=== PATIENT | female | born 1975 | race American Indian/Alaskan Native ===

== ENCOUNTER 2017-04-07 08:30 | Emergency (ER) | payer MEDICAID ==
[2017-04-07 08:40] VITALS: BP 112/73; PULSE 75; RESP 18; TEMP 98.3; O2SAT 100
--- NOTE | 2017-04-07 08:52 | C.PDOC ---
History Of Present Illness 41 yo female w/o significant PMHx come in for evaluation of Right wrist pain intermittent for past few months gradually worsen for past few days and associated intermittent tingling and numbness sensation to Right fingers. 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 Otherwise, pt denies fever, chills, known direct trauma or injury, denies deformity, weakness, vascular deficits or skin changes to Right hand. Ambulate to Ed for evaluation, not in any apparent distress. Time Seen by Provider: 04/07/17 08:51 Chief Complaint (Nursing): Finger,Hand,&Wrist History Per: Patient Onset/Duration Of Symptoms: Intermittent Episodes, Gradual Past Medical History Reviewed: Historical Data, Nursing Documentation, Vital Signs Vital Signs: Last Vital Signs Temp 98.3 F 04/07/17 08:35 Pulse 75 04/07/17 08:35 Resp 18 04/07/17 08:35 BP 112/73 04/07/17 08:35 Pulse Ox 100 04/07/17 08:52 - Medical History PMH: No Chronic Diseases Surgical History: No Surg Hx Family History: States: No Known Family Hx - Social History Hx Tobacco Use: Yes Hx Alcohol Use: No Hx Substance Use: No - Immunization History Hx Tetanus Toxoid Vaccination: No Hx Influenza Vaccination: No Hx Pneumococcal Vaccination: No Review Of Systems Except As Marked, All Systems Reviewed And Found Negative. Constitutional: Negative for: Fever, Chills ENT: Negative for: Throat Pain Musculoskeletal: Positive for: Hand Pain Skin: Negative for: Rash, Lesions Neurological: Positive for: Numbness. Negative for: Weakness Physical Exam - Physical Exam Appears: Well, Non-toxic, No Acute Distress Skin: Normal Color, Warm, No Rash, No Ecchymosis Extremity: Normal ROM (Right wrist and hand without difficulty.), Tenderness ( mild tenderness volar aspect Right wrist. Phalen and Tunnel test (-). No skin changes, no neurovascular deficits distally.), Capillary Refill (less than 2sec to Right hand), No Deformity (Right wrist and hand), No Swelling Neurological/Psych: Oriented x3, Normal Speech, Normal Motor, Normal Sensation, Normal Reflexes ED Course And Treatment O2 Sat by Pulse Oximetry: 100 Pulse Ox Interpretation: Normal Progress Note: On re-evaluation, pt is afebrile, hemodynamicaly stable. non- toxic. Right wrist: exam c/w arthralgia with mild paresthesia. No deformity, FAROM, no neurovascular deficits, no skin changes. No hx of trauma, hx offered - pt refused. Volar splint applied, anti-inflammatory given. Pt advised and ref. to F/u with PMD, Ortho in 2-3 days for re-eval. return if any new changes. Orthopedic Time Performed: 09:00 Time Out: Side verified, Site verified, Patient ID confirmed Procedure: Splint Type: Volar Location: Right, Wrist Consent obtained: Verbal Performed by: Mid-level Provider Diagnosis: Sprain, Other (paresthesia) Disposition Counseled Patient/Family Regarding: Diagnosis, Need For Followup, Rx Given - Disposition Referrals: Trenton Lara MD [Staff Provider] - Disposition: HOME/ ROUTINE Disposition Time: 09:02 Condition: STABLE Additional Instructions: LIght duty to Right wrist Splint for 2-3 weeks take medication as prescribed Follow up with PMD in 2-3 days for re-evaluation. Return to Ed if any worsening or new changes. Prescriptions: Prednisone [Deltasone] 20 mg PO DAILY #3 tablet traMADol [Ultram] 50 mg PO BID #7 tab Instructions: Paresthesia (ED) Forms: [facility] (Armenian), Work Excuse - Clinical Impression Clinical Impression: Hand paresthesia
== END 2017-04-07 09:25 | disposition home or self-care (01) ==
LOC: C.ER 08:30
DX: R20.9 Unspecified disturbances of skin sensation (principal)

== ENCOUNTER 2017-06-22 10:27 | Emergency (ER) | payer MEDICAID ==
[2017-06-22 10:45] VITALS: BP 116/69; PULSE 68; RESP 20; TEMP 98.2; O2SAT 100
[2017-06-22] MEDS ORDERED: Naproxen 550 mg Tab PO STA (11:09)
--- NOTE | 2017-06-22 11:11 | C.PDOC ---
History Of Present Illness 41 y/o female presents to ED with complaints of right hand numbness for 2 weeks. Patient was seen previously several months ago for same symptoms and reports she did not follow up with specialist. 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 Time Seen by Provider: 06/22/17 11:06 Chief Complaint (Nursing): Upper Extremity Problem/Injury History Per: Patient History/Exam Limitations: no limitations Onset/Duration Of Symptoms: Days Current Symptoms Are (Timing): Still Present Past Medical History Reviewed: Historical Data, Nursing Documentation, Vital Signs Vital Signs: Last Vital Signs Temp 98.2 F 06/22/17 10:44 Pulse 68 06/22/17 10:44 Resp 20 06/22/17 10:44 BP 116/69 06/22/17 10:44 Pulse Ox 100 06/22/17 11:27 - Medical History PMH: No Chronic Diseases Surgical History: No Surg Hx Family History: States: No Known Family Hx - Social History Hx Tobacco Use: Yes Hx Alcohol Use: No Hx Substance Use: No - Immunization History Hx Tetanus Toxoid Vaccination: No Hx Influenza Vaccination: Yes (03/2016) Hx Pneumococcal Vaccination: No Review Of Systems Except As Marked, All Systems Reviewed And Found Negative. Neurological: Positive for: Numbness (right hand) Physical Exam - Physical Exam Appears: Non-toxic, No Acute Distress Skin: Normal Color, Warm, Dry, No Rash Head: Atraumatic, Normacephalic Eye(s): bilateral: Normal Inspection Oral Mucosa: Moist Neck: Supple Extremity: Normal ROM, No Tenderness, Capillary Refill (<2 seconds), No Swelling Pulses: Left Radial: Normal, Right Radial: Normal Neurological/Psych: Oriented x3, Normal Motor, Normal Sensation ED Course And Treatment O2 Sat by Pulse Oximetry: 100 (RA) Pulse Ox Interpretation: Normal Disposition - Disposition Referrals: Mayda Montiel MD [Staff Provider] - Disposition: HOME/ ROUTINE Disposition Time: 11:11 Condition: STABLE Additional Instructions: follow up with your doctor, specialist. return to er with worsening symptoms or concerns. Instructions: Paresthesia (ED), Arthralgia (ED) Forms: [facility] (Kiswahili) - Clinical Impression Clinical Impression: Hand numbness - Scribe Statement The provider has reviewed the documentation as recorded by the Scribdoris Kim All medical record entries made by the Scribe were at my direction and personally dictated by me. I have reviewed the chart and agree that the record accurately reflects my personal performance of the history, physical exam, medical decision making, and the department course for this patient. I have also personally directed, reviewed, and agree with the discharge instructions and disposition.
[2017-06-22] MEDS ORDERED: Naproxen 550 mg Tab PO ONE (11:16)
== END 2017-06-22 11:31 | disposition home or self-care (01) ==
LOC: C.ER 10:27
DX: R20.2 Paresthesia of skin (principal)

== ENCOUNTER 2017-12-04 12:12 | Emergency (ER) | payer MEDICAID ==
[2017-12-04 12:15] VITALS: BP 122/69; PULSE 80; TEMP 98.4; O2SAT 100
--- NOTE | 2017-12-04 12:27 | C.PDOC ---
History Of Present Illness 41 year old female present to the ED with a sore throat. Patient also states that she has nasal congestion. Time Seen by Provider: 12/04/17 12:23 Chief Complaint (Nursing): ENT Problem History Per: Patient History/Exam Limitations: None Onset/Duration Of Symptoms: Days Current Symptoms Are (Timing): Still Present Past Medical History Reviewed: Historical Data, Nursing Documentation, Vital Signs Vital Signs: Last Vital Signs Temp 98.4 F 12/04/17 12:13 Pulse 80 12/04/17 12:13 Resp 17 12/04/17 12:46 BP 122/69 12/04/17 12:13 Pulse Ox 100 12/04/17 12:27 - Medical History PMH: No Chronic Diseases Family History: States: Unknown Family Hx - Social History Hx Tobacco Use: Yes Hx Alcohol Use: No Hx Substance Use: No - Immunization History Hx Tetanus Toxoid Vaccination: No Hx Influenza Vaccination: Yes (03/2016) Hx Pneumococcal Vaccination: No Review Of Systems Except As Marked, All Systems Reviewed And Found Negative. ENT: Positive for: Throat Pain, Other (nasal congestion) Physical Exam - Physical Exam Appears: Well, Non-toxic, No Acute Distress Nose: Other (nasal congestion) Throat: Erythema Neck: Normal, Supple Lymphatic: Other (No lymphadenopathy) Neurological/Psych: Oriented x3, Normal Speech ED Course And Treatment O2 Sat by Pulse Oximetry: 100 (RA) Pulse Ox Interpretation: Normal Medical Decision Making Medical Decision Making: sore throat not infected + PND, + nasal congestion c/w seasonal allergies. Disposition Doctor Will See Patient In The: Office Counseled Patient/Family Regarding: Studies Performed, Diagnosis - Disposition Referrals: Trenton Lara MD [Staff Provider] - Disposition: HOME/ ROUTINE Disposition Time: 12:27 Condition: GOOD Additional Instructions: motrin 400-600 mg every 6 hours as needed for throat pain daily Seasonal Allergy meds: Claritin, Flonase, Zyrtec, as needed for symptomatic relief. Instructions: Seasonal Allergies in Adults, Sore Throat, Adult (DC) Forms: [facility] [facility] (Chilean) - Clinical Impression Clinical Impression: Sore throat - Scribe Statement The provider has reviewed the documentation as recorded by the Scribe (Blanca Way) Provider Attestation: All medical record entries made by the Scribe were at my direction and personally dictated by me. I have reviewed the chart and agree that the record accurately reflects my personal performance of the history, physical exam, medical decision making, and the department course for this patient. I have also personally directed, reviewed, and agree with the discharge instructions and disposition.
[2017-12-04 12:47] VITALS: RESP 17
== END 2017-12-04 12:46 | disposition home or self-care (01) ==
LOC: C.ER 12:12
DX: J02.9 Acute pharyngitis, unspecified (principal)

== ENCOUNTER 2018-05-10 08:46 | Observation (INO) | payer MEDICAID ==
[2018-05-10] MEDS ORDERED: Sodium Chloride 0.9% 1,000 ML IV ONE (09:48)
--- NOTE | 2018-05-10 09:52 | C.PDOC ---
History Of Present Illness 42 year old female with PMHx of hepatitis, smoker presents to the ED for evaluation of reproducible right-sided chest pain which began last night. Patient describes her pain as constant, localized over Right anterior chest wall, and states it is worse with movement. She denies headache, dizziness, shortness of breath, wheezing, palpitations, diaphoresis, abdominal pain, nausea and vomiting, back pain. Ambulate to Ed for evaluation, not in any apparent distress. Time Seen by Provider: 05/10/18 09:02 Chief Complaint (Nursing): Chest Pain History Per: Patient History/Exam Limitations: no limitations Onset/Duration Of Symptoms: Hrs Current Symptoms Are (Timing): Still Present Quality: "Pain" Exacerbating Factors: Movement Additional History Per: Patient Past Medical History Reviewed: Historical Data, Nursing Documentation, Vital Signs Vital Signs: Last Vital Signs Temp Pulse 72 05/10/18 09:10 Resp BP Pulse Ox - Medical History PMH: No Chronic Diseases Surgical History: No Surg Hx Family History: States: Unknown Family Hx - Social History Hx Tobacco Use: Yes Hx Alcohol Use: No Hx Substance Use: No - Immunization History Hx Tetanus Toxoid Vaccination: No Hx Influenza Vaccination: No Hx Pneumococcal Vaccination: No Review Of Systems Cardiovascular: Positive for: Chest Pain Gastrointestinal: Negative for: Nausea, Vomiting, Abdominal Pain Neurological: Negative for: Headache, Dizziness Physical Exam - Physical Exam Appears: Well, Non-toxic, No Acute Distress Skin: Normal Color, Warm, Dry, No Rash Head: Normacephalic Eye(s): bilateral: PERRL Nose: No Flaring, No Discharge Oral Mucosa: Moist Throat: No Drooling Neck: Normal ROM, Trachea Midline, Supple Chest: Symmetrical, No Deformity, Tenderness (Right anterior chest wall tenderne ss overl 6-8 intercostal spaces.), No Ecchymosis, No Subcutaneous Emphysema Cardiovascular: Rhythm Regular, No Murmur, No JVD, Other ((-) carotid bruits B/L) Respiratory: No Decreased Breath Sounds, No Accessory Muscle Use, No Rales, No Rhonchi, No Stridor, No Wheezing Gastrointestinal/Abdominal: Soft, No Tenderness, No Distention, No Guarding Back: No CVA Tenderness Extremity: Normal ROM, No Pedal Edema, No Deformity, No Swelling Neurological/Psych: Oriented x3, Normal Speech ED Course And Treatment - Laboratory Results Result Diagrams: 05/10/18 10:30 05/10/18 10:30 Lab Interpretation: Abnormal Urine POC: Negative ECG: Interpreted By Me, Viewed By Me ECG Rhythm: Sinus Rhythm ECG Interpretation: Normal Interpretation Of ECG: SR@69/min, NAD, no acute T wave or ST-T changes O2 Sat by Pulse Oximetry: 100 (on RA ) Pulse Ox Interpretation: Normal - Radiology CXR: Interpreted by Me, Viewed By Me, Read By Radiologist CXR Interpretation: Yes: No Acute Disease - CT Scan/US Transvaginal US Other Rad Studies (CT/US): Radiology Report Reviewed CT/US Interpretation: Appeals Examiner : Becky Salas MD. Approver2 : Report Date : 05/10/2018 14:39:10. My Comment : . Date of service: 05/10/2018. HISTORY: anemia, heavy vag bleeding. COMPARISON: None available. TECHNIQUE: Real-time transabdominal pelvic ultrasound was performed. In addition a transvaginal pelvic ultrasound was necessary to better depict pelvic anatomy. FINDINGS: UTERUS: Measures 11.5 x 6.4 x 7.3 cm. Anteverted. Heterogeneous uterine echotexture. Numerous probable uterine fibroids including 0.7 cm lower uterine segment, 1.0 cm fundus, and 3.4 cm fundus. Question thickening of the myometrium with shadowing which may be seen in the setting of adenomyosis. ENDOMETRIUM: Measures 1.7 cm in diameter. CERVIX: Nabothian cysts. RIGHT OVARY: Measures 2.7 x 1.5 x 2.1 cm. Blood flow is demonstrated. LEFT OVARY: Measures 4.2 x 1.7 x 3.5 cm. Blood flow is demonstrated. FREE FLUID: No significant free fluid noted. OTHER FINDINGS: None. IMPRESSION: Heterogeneous uterine echotexture with numerous probable fibroids as above. Question thickening of the myometrium with shadowing which may be seen in the setting of adenomyosis. Endometrium appears top normal in thickness; correlate with stage of menstrual cycle. Nabothian cysts. Progress Note: Bloodwork and EKG ordered and reviewed. Toradol IVP and IV Fluids given. Pt was OBS in ED for 3 hours and remained stable. Blood work review, noted anemia with Hg 7. results review and discusse dwith pt, no previous of anemia or blood transfusion. Pt denies abd. pain, V/D, denies hematemesis, melena, hematoschezia. Pt was offered admission for blood transfusion and further evaluation of chest pain, anemia. Pt agrees with plan. 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 - Scribe Statement The provider has reviewed the documentation as recorded by the Scribe (Yamileth Andres) All medical record entries made by the Scribe were at my direction and personally dictated by me. I have reviewed the chart and agree that the record accurately reflects my personal performance of the history, physical exam, medical decision making, and the department course for this patient. I have also personally directed, reviewed, and agree with the discharge instructions and disposition.
[2018-05-10] MEDS ORDERED: Sodium Chloride 0.9% 1,000 ML ONE (10:35)
[2018-05-10 10:38] LABS: MEAN CORPUSCULAR HGB CONC 29.2 g/dL (33.0-37.0)
[2018-05-10 10:40] LABS: HCG,QUALITATIVE URINE NEGATIVE (NEGATIVE)
--- NOTE | 2018-05-10 10:40 | RAD ---
HISTORY: Chest pain COMPARISON: No prior. TECHNIQUE: Chest PA and lateral FINDINGS: LINES AND TUBES: None. LUNG AND PLEURA: The lungs are well inflated and clear. No pleural effusion or pneumothorax. HEART AND MEDIASTINUM: The heart is not enlarged. The hilar and mediastinal contours are within normal limits. SKELETAL STRUCTURES: The bony structures are within normal limits for the patient's age. VISUALIZED UPPER ABDOMEN: Normal. OTHER FINDINGS: None. IMPRESSION: No active pulmonary disease.
[2018-05-10 10:45] LABS: SQUAMOUS EPITHIAL 3 /hpf (0-5); URINE BACTERIA RARE (<OCC); URINE BILIRUBIN NEGATIVE (NEGATIVE); URINE BLOOD NEGATIVE (NEGATIVE); URINE CLARITY Clear (Clear); URINE COLOR Yellow (YELLOW); URINE GLUCOSE (UA) NORMAL (Normal); URINE LEUKOCYTE ESTERASE NEG Leu/uL (Negative); URINE PROTEIN NEGATIVE (NEGATIVE)
[2018-05-10 10:48] LABS: MEAN PLATELET VOLUME 10.7 fL (7.2-11.7); RED CELL DISTRIBUTION WIDTH 21.4 % (11.5-14.5); WHITE BLOOD COUNT 4.1 K/uL (4.8-10.8)
[2018-05-10 10:49] LABS: ALB/GLOB RATIO 1.4 (1.0-2.1); ALBUMIN 4.1 g/dL (3.5-5.0); BLOOD UREA NITROGEN 7 mg/dL (7-17); CALCIUM 8.4 mg/dl (8.6-10.4); GFR NON-AFRICAN AMERICAN > 60
[2018-05-10 10:51] LABS: ALT/SGPT 16 U/L (9-52); AST/SGOT 69 U/L (14-36)
[2018-05-10 10:52] LABS: MEAN CELL VOLUME 58.2 fL (81.0-99.0); RBC 4.09 Mil/uL (3.80-5.20)
[2018-05-10 11:13] LABS: INR 1.2; PROTHROMBIN TIME 12.7 SECONDS (9.7-12.2)
[2018-05-10 11:20] LABS: LYMPH # 1.3 K/uL (1.0-4.3); MONO # 0.2 K/uL (0.0-0.8); NEUT # 2.4 K/uL (1.8-7.0)
--- NOTE | 2018-05-10 13:58 | CP.PCM.HP ---
History of Present Illness - History of Present Illness History of Present Illness: CHIEF COMPLAINTS TODAY : PT. WAS ADMITTED FRON ER WITH CHEST PAIN WITH NEG. W/U . ROUTINE BLOOD TEST SHOWED HG 7.0 AND MILD ELEVATION OF LVT NO MEDICAL ILLNESS IN PAST SHE HAS HEAVY MENSES NO ACTIVE BLEEDING ROS. HEENT : N. Resp : No cough, wheezing ,pleuritic CP ,or hemoptysis Cardio : ATYPICAL CP GI : No abd.pain, n/v ,diarrhea or GI bleeding . MOTION PICTURE CAMERAMAN : No headache, vertigo, focal deficit. Musculoskel : No joint swelling , Derm : No rash Psych : Normal affect. Ext : No swelling ,calf pain PE. Pt. is alert awake in no distress. V.S As noted in the chart Head ,ear nose,throat and eyes : Normal. Neck : Supple with normal carotids. Lungs: Clear air entry. Heart : S1 & S2 normal with S4. No murmur. Abd : Soft non tender with normal bowel sounds. Neuro : Moves all ext. with no localized deficit. Ext : No edema with intact pulses.Non tender calves Derm : No rashes or decubitus ulcer. LABS/RADIOLOGY: ASSESSMENT/PLAN : SEVERE ANEMIA , ? SEC. 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 W/U Present on Admission - Present on Admission Any Indicators Present on Admission: No Past Patient History - Infectious Disease Hx of Infectious Diseases: None - Past Social History Smoking Status: Heavy Smoker > 10 Cigarettes Daily - PSYCHIATRIC Hx Substance Use: No - SURGICAL HISTORY Hx Surgeries: No - ANESTHESIA Hx Anesthesia: No Hx Anesthesia Reactions: No Meds Allergies/Adverse Reactions: Allergies Allergy/AdvReac Type Severity Reaction Status Date / Time No Known Allergies Allergy Verified 12/04/17 12:15 Results - Vital Signs Recent Vital Signs: Last Vital Signs Temp 98.5 F 05/10/18 11:14 Pulse 53 L 05/10/18 11:14 Resp 20 05/10/18 11:14 BP 96/50 L 05/10/18 11:14 Pulse Ox 100 05/10/18 11:38 - Labs Result Diagrams: 05/10/18 10:30 05/10/18 10:30 Labs: Laboratory Results - last 24 hr 05/10/18 05/10/18 05/10/18 10:30 10:30 10:30 WBC 4.1 L RBC 4.09 Hgb 7.0 L Hct 23.8 L MCV 58.2 L MCH 17.0 L MCHC 29.2 L RDW 21.4 H Plt Count 281 MPV 10.7 Neut % (Auto) 60.0 Lymph % (Auto) 34.0 [place] % (Auto) 6.0 Eos % (Auto) 0.0 Baso % (Auto) 0.0 Neut # (Auto) 2.4 Lymph # (Auto) 1.3 [place] # (Auto) 0.2 Eos # (Auto) 0.0 Baso # (Auto) 0.0 PT 12.7 H INR 1.2 APTT 33 Sodium Potassium Chloride Carbon Dioxide Anion Gap BUN Creatinine Est GFR ( Amer) Est GFR (Non-Af Amer) Random Glucose Calcium Total Bilirubin AST ALT Alkaline Phosphatase Troponin I Total Protein Albumin Globulin Albumin/Globulin Ratio Urine Color Yellow Urine Clarity Clear Urine pH 6.0 Ur Specific [place] 1.017 Urine Protein Negative Urine Glucose (UA) Normal Urine Ketones Negative Urine Blood Negative Urine Nitrate Negative Urine Bilirubin Negative Urine Urobilinogen 4.0 H Ur Leukocyte Esterase Neg Urine WBC (Auto) 1 Urine RBC (Auto) < 1 Ur Squamous Epith Cells 3 Urine Bacteria Rare Urine HCG, Qual Negative Blood Type Antibody Screen 05/10/18 05/10/18 10:30 11:47 WBC RBC Hgb Hct MCV MCH MCHC RDW Plt Count MPV Neut % (Auto) Lymph % (Auto) [place] % (Auto) Eos % (Auto) Baso % (Auto) Neut # (Auto) Lymph # (Auto) [place] # (Auto) Eos # (Auto) Baso # (Auto) PT INR APTT Sodium 139 Potassium 4.8 Chloride 108 H Carbon Dioxide 23 Anion Gap 13 BUN 7 Creatinine 0.7 Est GFR ( Amer) > 60 Est GFR (Non-Af Amer) > 60 Random Glucose 93 Calcium 8.4 L Total Bilirubin 1.6 H AST 69 H ALT 16 Alkaline Phosphatase 37 L Troponin I 0.0240 Total Protein 7.1 Albumin 4.1 Globulin 3.0 Albumin/Globulin Ratio 1.4 Urine Color Urine Clarity Urine pH Ur Specific [place] Urine Protein Urine Glucose (UA) Urine Ketones Urine Blood Urine Nitrate Urine Bilirubin Urine Urobilinogen Ur Leukocyte Esterase Urine WBC (Auto) Urine RBC (Auto) Ur Squamous Epith Cells Urine Bacteria Urine HCG, Qual Blood Type O POSITIVE Antibody Screen Negative
--- NOTE | 2018-05-10 14:43 | US ---
Date of service: 05/10/2018 HISTORY: anemia, heavy vag bleeding COMPARISON: None available. TECHNIQUE: Real-time transabdominal pelvic ultrasound was performed. In addition a transvaginal pelvic ultrasound was necessary to better depict pelvic anatomy. FINDINGS: UTERUS: Measures 11.5 x 6.4 x 7.3 cm. Anteverted. Heterogeneous uterine echotexture. Numerous probable uterine fibroids including 0.7 cm lower uterine segment, 1.0 cm fundus, and 3.4 cm fundus. Question thickening of the myometrium with shadowing which may be seen in the setting of adenomyosis. ENDOMETRIUM: Measures 1.7 cm in diameter. CERVIX: Nabothian cysts. RIGHT OVARY: Measures 2.7 x 1.5 x 2.1 cm. Blood flow is demonstrated. LEFT OVARY: Measures 4.2 x 1.7 x 3.5 cm. Blood flow is demonstrated. FREE FLUID: No significant free fluid noted. OTHER FINDINGS: None. IMPRESSION: Heterogeneous uterine echotexture with numerous probable fibroids as above. Question thickening of the myometrium with shadowing which may be seen in the setting of adenomyosis. Endometrium appears top normal in thickness; correlate with stage of menstrual cycle. Nabothian cysts.
--- NOTE | 2018-05-10 15:29 | CP.PCM.CON ---
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 Patient currently states that her right sided chest pain has improved significantly. Of note, patient also stated that she has heavy periods. On routine labwork, patient was noted to be anemic with hemoglobin of 7.0. SEXUAL ABUSE COUNSELLOR consult placed to evaluate heavy vaginal bleeding. She states she is not currently experiencing vaginal bleeding. Her LMP was in the first week of March, and she states she is due for her next period this week. She states she is not likely to be . She states her vaginal bleeding is typically heavy on the first 3 days of her period, using up to 6 pads every 24 hours. She states she has been told that she needs to take iron daily in the past, however has never taken iron regularly. She admits to chewing a lot of ice regularly. She denies symptoms of hot flushes, vaginal dryness currently. She denies dysuria, vaginal discharge, pelvic pain at this time. She denies recent fever, chills, headache, abdominal pain, nausea, vomiting, diarrhea, constipation, calf pain or swelling. OB Hx: , 4 vaginal deliveries at term, 2 abortions SEXUAL ABUSE COUNSELLOR Hx: Age of menarche: 12, every 28-30 days lasts 5 days. No hx of fibroids or ovarian cysts .No hx of STIs. Last Pap smear 3 years ago was normal. Has never had a mammogram. LMP - March. Not currently on contraception - has not used contraception since her last 8 years ago. PMH: untreated Hepatitis (initially told she had Hepatitis 8 years ago during her , however denies any treatment), PSH: none Meds: none Allergies: NKDA Social: (+) smokes 10 cigarettes daily for the past 24 years, denies alcohol use, denies illicit drug use. 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 ABUSE COUNSELLOR: [facility] Review of Systems - Constitutional Constitutional: absent: Chills, Fever - Cardiovascular Cardiovascular: Chest Pain, Dyspnea - Respiratory Respiratory: absent: Cough - Gastrointestinal Gastrointestinal: absent: Abdominal Pain, Nausea, Vomiting - Genitourinary Genitourinary: absent: Dysuria, Urinary Incontinence - Reproductive: Female Reproductive:Female: Menses 1-7 Days - Menstruation Menstruation: absent: Spotting Between Cycles - Musculoskeletal Musculoskeletal: absent: Back Pain, Neck Pain - Psychiatric Psychiatric: absent: Anxiety, Depression Past Patient History - Infectious Disease Hx of Infectious Diseases: None - Past Social History Smoking Status: Heavy Smoker > 10 Cigarettes Daily - PSYCHIATRIC Hx Substance Use: No - SURGICAL HISTORY Hx Surgeries: No - ANESTHESIA Hx Anesthesia: No Hx Anesthesia Reactions: No Meds Allergies/Adverse Reactions: Allergies Allergy/AdvReac Type Severity Reaction Status Date / Time No Known Allergies Allergy Verified 12/04/17 12:15 Physical Exam - Constitutional Appears: No Acute Distress - Head Exam Head Exam: ATRAUMATIC, NORMOCEPHALIC - Eye Exam Eye Exam: EOMI, Scleral icterus - ENT Exam ENT Exam: Mucous Membranes Moist - Neck Exam Neck exam: Positive for: Full Rom. Negative for: Tenderness - Respiratory Exam Respiratory Exam: Clear to Auscultation Bilateral. absent: Rales, Rhonchi, Wheezes - Cardiovascular Exam Cardiovascular Exam: REGULAR RHYTHM, +S1, +S2. absent: Gallop, Rubs - GI/Abdominal Exam GI & Abdominal Exam: Normal Bowel Sounds, Soft. absent: Distended, Firm, Guarding, Hernia, Tenderness - Exam Speculum exam: NORMAL SPECULUM EXAM, Vaginal Discharge (mild discharge consistent with yeast infection ). absent: Cervical Discharge, Erythema, Laceration, Tissue, Vaginal Bleeding Bimanual exam: NORMAL BIMANUAL EXAM. absent: Adenexal Mass, Cervical Motion Tendernes, Uterine Enlargement, Uterine Tenderness - Extremities Exam Extremities exam: Positive for: pedal pulses present. Negative for: calf tenderness - Back Exam Back exam: absent: CVA tenderness (L), CVA tenderness (R) - Neurological Exam Neurological exam: Alert, Oriented x3 Results - Vital Signs Recent Vital Signs: Last Vital Signs Temp 98.4 F 05/10/18 14:34 Pulse 67 05/10/18 14:34 Resp 16 05/10/18 14:34 BP 110/63 05/10/18 14:34 Pulse Ox 100 05/10/18 14:34 - Labs Result Diagrams: 05/10/18 10:30 05/10/18 10:30 Labs: Laboratory Results - last 24 hr 05/10/18 05/10/18 05/10/18 10:30 10:30 10:30 WBC 4.1 L RBC 4.09 Hgb 7.0 L Hct 23.8 L MCV 58.2 L MCH 17.0 L MCHC 29.2 L RDW 21.4 H Plt Count 281 MPV 10.7 Neut % (Auto) 60.0 Lymph % (Auto) 34.0 Crisp % (Auto) 6.0 Eos % (Auto) 0.0 Baso % (Auto) 0.0 Neut # (Auto) 2.4 Lymph # (Auto) 1.3 Crisp # (Auto) 0.2 Eos # (Auto) 0.0 Baso # (Auto) 0.0 PT 12.7 H INR 1.2 APTT 33 Sodium Potassium Chloride Carbon Dioxide Anion Gap BUN Creatinine Est GFR ( Amer) Est GFR (Non-Af Amer) Random Glucose Calcium Total Bilirubin AST ALT Alkaline Phosphatase Troponin I Total Protein Albumin Globulin Albumin/Globulin Ratio Urine Color Yellow Urine Clarity Clear Urine pH 6.0 Ur Specific [place] 1.017 Urine Protein Negative Urine Glucose (UA) Normal Urine Ketones Negative Urine Blood Negative Urine Nitrate Negative Urine Bilirubin Negative Urine Urobilinogen 4.0 H Ur Leukocyte Esterase Neg Urine WBC (Auto) 1 Urine RBC (Auto) < 1 Ur Squamous Epith Cells 3 Urine Bacteria Rare Urine HCG, Qual Negative Blood Type Antibody Screen 05/10/18 05/10/18 10:30 11:47 WBC RBC Hgb Hct MCV MCH MCHC RDW Plt Count MPV Neut % (Auto) Lymph % (Auto) Crisp % (Auto) Eos % (Auto) Baso % (Auto) Neut # (Auto) Lymph # (Auto) Crisp # (Auto) Eos # (Auto) Baso # (Auto) PT INR APTT Sodium 139 Potassium 4.8 Chloride 108 H Carbon Dioxide 23 Anion Gap 13 BUN 7 Creatinine 0.7 Est GFR ( Amer) > 60 Est GFR (Non-Af Amer) > 60 Random Glucose 93 Calcium 8.4 L Total Bilirubin 1.6 H AST 69 H ALT 16 Alkaline Phosphatase 37 L Troponin I 0.0240 Total Protein 7.1 Albumin 4.1 Globulin 3.0 Albumin/Globulin Ratio 1.4 Urine Color Urine Clarity Urine pH Ur Specific [place] Urine Protein Urine Glucose (UA) Urine Ketones Urine Blood Urine Nitrate Urine Bilirubin Urine Urobilinogen Ur Leukocyte Esterase Urine WBC (Auto) Urine RBC (Auto) Ur Squamous Epith Cells Urine Bacteria Urine HCG, Qual Blood Type O POSITIVE Antibody Screen Negative Assessment & Plan - Assessment and Plan (Free Text) Assessment: 1. Chronic anemia, most likely secondary to Fe deficiency from pica 2. Denies heavy vaginal bleeding or irregular periods. No known history of irregular periods or heavy bleeding 3. Multiple small fibroids per ultrasound, denies pelvic pain or severe dysmenorrhea 4. Probably adenomyosis per ultrasound, asymptomatic per patient 5. Right sided chest pain, shortness of breath, worked up by medicine team 6. Untreated Hepatitis, per patient Plan: Current Hb of 7.0, Hct 23.8, MCV 58.2/ asymptomatic per patient Possible secondary to iron deficiency, (patient states she has not taken iron as directed by her physician) 1. Patient made aware of ultrasound findings and expressed understanding. TVUS:Heterogeneous uterine echotexture with numerous probably fibroids including 0.7cm lower uterine segment, 1.0 cm fundus, 3.4 cm fundus. Question thickening of the myometrium with shadowing which may be seen in the setting of adenomyosis. Endometrium appears top normal in thickness, correlate with stage of menstrual cycle. Nabothian cysts. 2. Recommend follow up with SEXUAL ABUSE COUNSELLOR at [facility] to evaluate fibroids. Patient to be given a copy of ultrasound findings upon discharge. 3. Recommend to decrease chewing ice 4. Recommend iron therapy 5. Further management per medicine team Thank you for your consultation. Will sign off. Case discussed with Dr. Nemesio Norris, PGY1
[2018-05-10 15:46] LABS: IRON 14 ug/dL (37-170)
[2018-05-10 15:47] LABS: FERRITIN 3.9 ng/mL
[2018-05-10 15:55] LABS: % IRON SATURATION 4 (20-55); TOTAL IRON BINDING CAPACITY 384 ug/dL (250-450)
[2018-05-10 16:17] LABS: FOLATE 12.8 ng/mL
[2018-05-10 19:27] VITALS: RESP 20
[2018-05-11 07:17] LABS: BASO # 0.1 K/uL (0.0-0.2); EOS # 0.1 K/uL (0.0-0.7); LYMPH # 1.8 K/uL (1.0-4.3); MEAN PLATELET VOLUME 9.9 fL (7.2-11.7); MONO # 0.4 K/uL (0.0-0.8)
[2018-05-11 07:25] LABS: BASO % 2.1 % (0.0-2.0); EOS % 1.4 % (0.0-4.0); HEMOGLOBIN 8.6 g/dL (11.0-16.0); MEAN CORPUSCULAR HEMOGLOBIN 19.7 pg (27.0-31.0); MEAN CORPUSCULAR HGB CONC 30.8 g/dL (33.0-37.0); MONO % 5.8 % (0.0-10.0); NEUT # 3.9 K/uL (1.8-7.0); NEUT % 61.7 % (50.0-75.0); NRBC % 0.2 % (0.0-2.0); RBC 4.34 Mil/uL (3.80-5.20)
[2018-05-11 07:26] LABS: WHITE BLOOD COUNT 6.4 K/uL (4.8-10.8)
[2018-05-11] MEDS ORDERED: Ferric Sodium Gluconat Complex 62.5 mg/5 ml Vial IVPB SCH (10:00)
[2018-05-11] MEDS: Ferric Sodium Gluconat Complex 125 MG in Sodium Chloride 0.9% 100 ML IVPB SCH (12:36)
--- NOTE | 2018-05-11 13:56 | CP.PCM.PN ---
Subjective - Date & Time of Evaluation Date of Evaluation: 05/11/18 Time of Evaluation: 13:56 - Subjective Subjective: CHIEF COMPLAINTS TODAY : No further chest pain Patient received 2 units of packed cells. Hemoglobin is 8.6 ROS. HEENT : N. Resp : No cough, wheezing ,pleuritic CP ,or hemoptysis Cardio : No anginal CP, PND, orthopnea, palpitation GI : No abd.pain, n/v ,diarrhea or GI bleeding . 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 Musculoskel : No joint swelling , Derm : No rash Psych : Normal affect. Ext : No swelling ,calf pain PE. Pt. is alert awake in no distress. V.S As noted in the chart Head ,ear nose,throat and eyes : Normal. Neck : Supple with normal carotids. Lungs: Clear air entry. Heart : S1 & S2 normal with S4. No murmur. Abd : Soft non tender with normal bowel sounds. Neuro : Moves all ext. with no localized deficit. Ext : No edema with intact pulses.Non tender calves Derm : No rashes or decubitus ulcer. LABS/RADIOLOGY: ASSESSMENT/PLAN : Continue IV iron therapy check further GI workup Objective - Vital Signs/Intake and Output Vital Signs (last 24 hours): Temp Pulse Resp BP Pulse Ox 98.1 F 50 L 20 108/62 100 05/11/18 07:01 05/11/18 07:01 05/11/18 07:01 05/11/18 07:01 05/11/18 07:01 Intake and Output: 05/11/18 05/11/18 11:59 23:59 Intake Total 1250 Balance 1250 - Medications Medications: Current Medications Ferric Sodium Gluconate Complex 125 mg/ Sodium Chloride 110 mls @ 110 mls/hr IVPB DAILY ALLEN Stop: 05/19/18 10:01 Last Admin: 05/11/18 12:36 Dose: 110 mls/hr - Labs Labs: 05/11/18 06:59 05/10/18 10:30 PT 12.7 SECONDS (9.7-12.2) H 05/10/18 10:30 INR 1.2 05/10/18 10:30 APTT 33 SECONDS (21-34) 05/10/18 10:30
--- NOTE | 2018-05-11 19:26 | CARD ---
APPROVED REPORT Date of service: 05/11/2018 EXAM: Two-dimensional and M-mode echocardiogram with Doppler and color Doppler. Other Information Quality : GoodRhythm : INDICATION Cardiac Disease: CAD Chest Pain 2D DIMENSIONS IVSd0.9 (0.7-1.1cm)LVDd5.3 (3.9-5.9cm) PWd0.9 (0.7-1.1cm)LVDs3.8 (2.5-4.0cm) FS (%) 28.8 %LVEF (%)55.0 (>50%) LVEF (Flores's)56.17 % M-Mode DIMENSIONS Left Atrium (MM)3.81 (2.5-4.0cm)IVSd0.98 (0.7-1.1cm) Aortic Root3.15 (2.2-3.7cm)LVDd5.62 (4.0-5.6cm) Aortic Cusp Exc.1.99 (1.5-2.0cm)PWd0.96 (0.7-1.1cm) FS (%) 32 %LVDs3.81 (2.0-3.8cm) LVEF (%)60 (>50%) Mitral Valve MV E Nnjxjzea457.9cm/sMV A Atnlibfj41.4cm/sE/A ratio2.2 TDI Lateral E' Peak V10.67cm/sMedial E' Peak V9.06cm/sE/Lateral E'10.8 E/Medial E'12.7 Tricuspid Valve TR Peak Ibgreolu201yy/sTR Peak Gr.95okCfADCX97xyBn <Conclusion> normal size la,lv & ra rv. normal lv wall motion,thickness,systolic & diastolic function with lvef of 55-60%. normal aortic,mitral,tv & pv. mild mr,tr,pi with upper normal pulmonary systolic pressures of 35 mm of hg. no pericardial effusion.normal size aortic root. ivc is dilated with poor inspiratory collapse,c/w elevated ra pressures.
[2018-05-12 07:50] LABS: BASO # 0.1 K/uL (0.0-0.2); BASO % 1.5 % (0.0-2.0); EOS # 0.1 K/uL (0.0-0.7); EOS % 1.6 % (0.0-4.0); HEMOGLOBIN 8.6 g/dL (11.0-16.0); MEAN CORPUSCULAR HEMOGLOBIN 19.3 pg (27.0-31.0); RED CELL DISTRIBUTION WIDTH 27.7 % (11.5-14.5)
[2018-05-12 07:55] LABS: LYMPH # 1.5 K/uL (1.0-4.3); LYMPH % 19.8 % (20.0-40.0); MEAN CELL VOLUME 63.1 fL (81.0-99.0); MEAN CORPUSCULAR HGB CONC 30.6 g/dL (33.0-37.0); MEAN PLATELET VOLUME 10.2 fL (7.2-11.7); MONO # 0.4 K/uL (0.0-0.8); MONO % 5.5 % (0.0-10.0); NEUT # 5.3 K/uL (1.8-7.0); NEUT % 71.6 % (50.0-75.0); NRBC % 0.3 % (0.0-2.0); RBC 4.47 Mil/uL (3.80-5.20); WHITE BLOOD COUNT 7.4 K/uL (4.8-10.8)
[2018-05-12 08:39] LABS: ALB/GLOB RATIO 1.2 (1.0-2.1); ALBUMIN 3.5 g/dL (3.5-5.0); ALT/SGPT 22 U/L (9-52); AST/SGOT 24 U/L (14-36); BLOOD UREA NITROGEN 12 mg/dL (7-17); CALCIUM 8.7 mg/dl (8.6-10.4); GFR NON-AFRICAN AMERICAN > 60
[2018-05-12 08:45] VITALS: O2SAT 100
[2018-05-12] MEDS: Ferric Sodium Gluconat Complex 125 MG in Sodium Chloride 0.9% 100 ML IVPB SCH (10:33)
--- NOTE | 2018-05-12 13:59 | CP.PCM.PN ---
Subjective - Date & Time of Evaluation Date of Evaluation: 05/12/18 Time of Evaluation: 13:59 - Subjective Subjective: CHIEF COMPLAINTS TODAY : No further chest pain Patient received 2 units of packed cells. Hemoglobin is 8.6 ROS. HEENT : N. Resp : No cough, wheezing ,pleuritic CP ,or hemoptysis Cardio : No anginal CP, PND, orthopnea, palpitation GI : No abd.pain, n/v ,diarrhea or GI bleeding . 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 Musculoskel : No joint swelling , Derm : No rash Psych : Normal affect. Ext : No swelling ,calf pain PE. Pt. is alert awake in no distress. V.S As noted in the chart Head ,ear nose,throat and eyes : Normal. Neck : Supple with normal carotids. Lungs: Clear air entry. Heart : S1 & S2 normal with S4. No murmur. Abd : Soft non tender with normal bowel sounds. Neuro : Moves all ext. with no localized deficit. Ext : No edema with intact pulses.Non tender calves Derm : No rashes or decubitus ulcer. LABS/RADIOLOGY: ASSESSMENT/PLAN : continue IV iron therapy. Echocardiogram is normal left ventricle systolic functi. Objective - Vital Signs/Intake and Output Vital Signs (last 24 hours): Temp Pulse Resp BP Pulse Ox 98.2 F 52 L 20 125/65 100 05/12/18 08:44 05/12/18 08:44 05/12/18 08:44 05/12/18 08:44 05/12/18 08:44 Intake and Output: 05/12/18 05/12/18 11:59 23:59 Intake Total 500 Balance 500 - Medications Medications: Current Medications Ferric Sodium Gluconate Complex 125 mg/ Sodium Chloride 110 mls @ 110 mls/hr IVPB DAILY ALLEN Stop: 05/19/18 10:01 Last Admin: 05/12/18 10:33 Dose: 110 mls/hr - Labs Labs: 05/12/18 07:35 05/12/18 07:35 PT 12.7 SECONDS (9.7-12.2) H 05/10/18 10:30 INR 1.2 05/10/18 10:30 APTT 33 SECONDS (21-34) 05/10/18 10:30
[2018-05-12 15:55] VITALS: BP 139/63; PULSE 56; TEMP 98.1
--- NOTE | 2018-05-12 16:44 | CP.PCM.PN ---
Subjective - Date & Time of Evaluation Date of Evaluation: 05/12/18 Time of Evaluation: 16:43 Objective - Vital Signs/Intake and Output Vital Signs (last 24 hours): Temp Pulse Resp BP Pulse Ox 98.1 F 56 L 20 139/63 100 05/12/18 15:00 05/12/18 15:00 05/12/18 15:00 05/12/18 15:00 05/12/18 15:00 Intake and Output: 05/12/18 05/12/18 06:59 18:59 Intake Total 980 700 Balance 980 700 - Medications Medications: Current Medications Ferric Sodium Gluconate Complex 125 mg/ Sodium Chloride 110 mls @ 110 mls/hr IVPB DAILY ALLEN Stop: 05/19/18 10:01 Last Admin: 05/12/18 10:33 Dose: 110 mls/hr - Labs Labs: 05/12/18 07:35 05/12/18 07:35 PT 12.7 SECONDS (9.7-12.2) H 05/10/18 10:30 INR 1.2 05/10/18 10:30 APTT 33 SECONDS (21-34) 05/10/18 10:30 Assessment and Plan - Assessment and Plan (Free Text) Assessment: FOLLOW UP WITH DR BRAUN IN HIS OFFICE -----CALL FOR APPOINEMT CONTINUE HOME MEDICATION NEW PRESCRIPTION GIVEN IRON 325MG PO BID ACTIVITY TOLERATED CALL DR BRAUN OR GO TO THE EMERGENCY ROOM IF SYMPTOM RETURN OR WORSENING
== END 2018-05-12 17:21 | disposition home or self-care (01) ==
LOC: C.ER 08:46 → C.9E 11:10 → C.5S 18:07
PROVIDERS: ADMIT Internal Medicine Cardiovascular Disease; ATTEND Internal Medicine Cardiovascular Disease
DX: R07.89 Other chest pain (principal); E61.1 Iron deficiency; F17.210 Nicotine dependence, cigarettes, uncomplicated; N92.0 Excessive and frequent menstruation with regular cycle; D25.9 Leiomyoma of uterus, unspecified
CPT/HCPCS: 36415; 36430; 71046; 76830; 76856; 80053; 81001; 82607; 82728; 82746; 83540; 83550; 84484; 84703; 85025; 85610; 85730; 86850; 86900; 86920; 93306; 96360; 96374; 99285; G0378; J1885; J2916; J7030; P9051

== ENCOUNTER 2018-09-28 08:50 | Emergency (ER) | payer MEDICAID ==
--- NOTE | 2018-09-28 09:26 | C.PDOC ---
History Of Present Illness 43 y/o female presents to the ED complaining of recurrent paresthesias to the bilateral fingertips of 3rd and 4th digits. She also reports wrist discomfort since yesterday. States she had similar episode 1 year ago, which spontaneously resolved but has now recurred. No trauma. No associated with position. Otherwise patient denies extremity weakness. Time Seen by Provider: 09/28/18 09:24 Chief Complaint (Nursing): Upper Extremity Problem/Injury History Per: Patient History/Exam Limitations: no limitations Onset/Duration Of Symptoms: Days (x2) Current Symptoms Are (Timing): Still Present Past Medical History Reviewed: Historical Data, Nursing Documentation, Vital Signs Surgical History: No Surg Hx Family History: States: Unknown Family Hx - Social History Hx Tobacco Use: Yes Hx Alcohol Use: No Hx Substance Use: No - Immunization History Hx Tetanus Toxoid Vaccination: No Hx Influenza Vaccination: No Hx Pneumococcal Vaccination: No Review Of Systems Except As Marked, All Systems Reviewed And Found Negative. Constitutional: Negative for: Fever Cardiovascular: Negative for: Chest Pain Respiratory: Negative for: Shortness of Breath Gastrointestinal: Negative for: Nausea, Vomiting Musculoskeletal: Positive for: Hand Pain (B/L wrist discomfort) Skin: Negative for: Rash, Lesions Neurological: Positive for: Other (Paresthesias to B/L 3, 4 fingertips). Negative for: Weakness, Numbness Physical Exam - Physical Exam Appears: Well, Non-toxic, No Acute Distress Skin: Warm, Dry, No Rash Head: Atraumatic, Normacephalic Eye(s): bilateral: Normal Inspection, PERRL, EOMI Neck: Normal ROM Chest: Symmetrical Respiratory: No Accessory Muscle Use, Other (NARD) Extremity: Normal ROM (full AROM without difficulty), No Tenderness, No Deformity, No Swelling Extremity: Bilateral: Atraumatic, Other (skin intact) Pulses: Left Radial: Normal, Right Radial: Normal Neurological/Psych: Oriented x3, Normal Motor (No focal motor deficits), Other (+Paresthesias to tips of B/L digits 3, 4) Gait: Steady Medical Decision Making Medical Decision Making: Impression: Carpal Tunnel Plan: Bilateral wrist splints placed in the ED. Patient advised to take nsaids prn for pain and follow up with PMD/the clinic. Disposition Counseled Patient/Family Regarding: Diagnosis, Need For Followup, Rx Given - Disposition Referrals: [facility] [Outside] [facility] [Outside] Disposition: HOME/ ROUTINE Disposition Time: 09:26 Condition: IMPROVED Instructions: Carpal Tunnel Syndrome (DC) Forms: [facility] (Kiswahili), Work Excuse - POA Present On Arrival: None - Clinical Impression Clinical Impression: Carpal tunnel syndrome - Scribe Statement The provider has reviewed the documentation as recorded by the Paulibdoris Dean Provider Attestation: All medical record entries made by the Stacie were at my direction and personally dictated by me. I have reviewed the chart and agree that the record accurately reflects my personal performance of the history, physical exam, medical decision making, and the department course for this patient. I have also personally directed, reviewed, and agree with the discharge instructions and disposition.
[2018-09-28 09:28] VITALS: BP 126/80; PULSE 75; RESP 18; TEMP 98.5; O2SAT 96
== END 2018-09-28 10:05 | disposition home or self-care (01) ==
LOC: C.ER 08:50
DX: G56.03 Carpal tunnel syndrome, bilateral upper limbs (principal); Z72.0 Tobacco use

== ENCOUNTER 2018-10-07 13:07 | Emergency (ER) | payer MEDICAID | END 2018-10-07 14:46 | disposition home or self-care (01) | LOC: C.ER 13:07 ==